=== PATIENT | female | born 1945 | race African-American/Black ===

== ENCOUNTER 2023-07-20 01:36 | Day surgery (SDC) | payer MEDICARE, SELFPAY ==
--- NOTE | 2023-07-14 13:54 | PC.NURSE ---
Report to the Outpatient Waiting Room, entrance under the green pavilion located off [facility], at time _1200 on date __07/20/23 . Planned Procedure Time: ___1400 . Time changes happen often and if your time is changed the preop area will call you the afternoon before. - You and your visitor will be asked to self-screen and do not enter if you have any COVID symptoms. - A mask is optional within the hospital at this time. Patients may have clear liquids (water, carbonated beverages, clear teas, apple juice) until 3 hours prior to surgery with a maximum of 20 ounces. - No food from midnight until time of surgery - Infants may have breast milk until 4 hours before surgery, infant formula 6 hours prior to surgery. - Children will be allowed to drink immediately following surgery. If applicable, please bring a bottle or sippy cup to assist with drinking. Juice, water, soda, and popsicles are readily available. For infants on formula, please bring formula the day of surgery. Pacifiers are allowed. Take the following medications with a SIP of water the morning of surgery: _NIFEDIPINE,LEVOTHYROXINE DO NOT STOP ANY OF YOUR OTHER PRESCRIPTION MEDICATIONS PRIOR TO SURGERY ?EXCEPT THE FOLLOWING Medications to discontinue per physician __CELECOXIB PER DR CEBALLOS ALL VITAMINS AND SUPPLEMENTS 3 DAYS PRE OP.LAST DOSE 07/16/23 Please no make-up, nail tamazight, hairspray, perfume, deodorant, or body powder the day of surgery. No jewelry (including any body piercings) or valuables the day of surgery, leave them at home. Please take a shower or bath the night before, or the morning of, surgery with an antibacterial soap. Wear comfortable, loose fitting clothing. Children are encouraged to wear pajamas. - Jewelry must be removed prior to entering the operating room. Rings and piercings that are not removed may be cut off. - The hospital will not accept responsibility for valuables. - Please leave all valuables, including medications, at home the day of surgery. If you are going home after surgery, a licensed shuttle truck driver must drive you home. - NO public transportation without another adult if you receive anesthesia. - We recommend that an adult stay with you for 24 hours following discharge. - We also recommend that you do not drive, make important decision, drink alcoholic beverages, or take any drugs that were not prescribed by your health care provider for at least 24 hours after your discharge time. For Pediatric surgeries, we recommend two adults accompany the child home. Follow any additional instructions given to you from your surgeon. If you or anyone in your household have experienced Covid symptoms in the past week, please notify your surgeon or the nurse liaison at the phone number below for possible testing. Telephone instructions given to ____PT and asked if any additional questions and then verbalized understanding. Patient advised to call surgeon office or pre surgery nurse liaison [phone] if any additional questions.
[2023-07-14 14:00] VITALS: BMI 29.7
--- NOTE | 2023-07-20 07:05 | WPDHPUPDATE1 ---
History and Physical Update Update Date/Time: 07/20/23 07:05 History and Physical has been reviewed, including an updated exam of the patient. There are NO changes in the patient's condition. Risks, benefits, and alternatives have been discussed and questions answered. Patient agrees to proceed with procedure.
[2023-07-20] MEDS: LACTATED RINGERS 1,000 ML 30 ML IV CONT (09:30)
--- NOTE | 2023-07-20 09:46 | WPDANESEPPF ---
Anes - Initial Pre Proc Eval Procedure: Operation Date: 07/20/23 10:30 Proposed Procedures p Excision of Two Keloids Left Axilla, Anterior and Posterior - Lev Navarro MD Date/Time: 07/20/23 09:46 Surgeon: Lev Navarro MD Pre Op Diagnosis: Keloids x 2 Left Axilla, Anterior and Posterior Patient Data Age: 78 Gender: F Height: 1.65 m Weight: 81.2 kg Allergies Allergy/AdvReac Type Severity Reaction Status Date / Time No Known Allergies Allergy Verified 07/14/23 13:44 Home Medications Medication Instructions Recorded Confirmed Type ascorbic acid (vitamin C) 1,000 mg 1 g PO DAILY 07/14/23 07/14/23 History capsule celecoxib 100 mg capsule (Celebrex) 100 mg PO PRN PRN Pain 07/14/23 07/14/23 History cyanocobalamin (vitamin B-12) 1,000 mcg PO DAILY 07/14/23 07/14/23 History 1,000 mcg capsule levothyroxine 25 mcg tablet 25 mcg PO DAILY 07/14/23 07/14/23 History nifedipine 30 mg tablet,extended 30 mg PO DAILY 07/14/23 07/14/23 History release Patient hx anesthesia problems: none Family hx anesthesia problems: none Results Review: All pre-operative results and documents have been reviewed as part of the pre-operative evaluation. [facility] Social History Social History Smoking status: Never smoker Living arrangements: with family Spiritual care concerns: No Anes - Eval Final PreProcedure Day of Procedure 07/20/23 09:46 Patient weight: normal Heart: regular rate and rhythm Lungs: clear to auscultation Airway: Mallampati scale class II Neurological: alert and oriented Last oral intake: >/= 8 hours ASA classification: II Emergent: no Anesthetic plan: proceed Anesthesia type and monitoring: general GIVS and standard monitoring Results Review: All pre-operative results and documents have been reviewed as part of the pre-operative evaluation. Informed Consent: The patient's anesthetic plan and its attendant risks and benefits were discussed with the patient/family/POA. Questions were solicited and answers provided to the satisfaction of the patient/family/POA.
[2023-07-20 10:06] VITALS: BP 187/74; PULSE 105; RESP 18; TEMP 36.6; O2SAT 97
[2023-07-20] MEDS: LIDO 1%/EPINEPHRINE 1:100,000 20 ML VIAL 5 ML INFILTRATE (10:30)
[2023-07-20] MEDS: BACITRACIN OINTMENT 15 GM TUBE 1 APPLIC TOPICAL (10:51)
[2023-07-20 11:04] VITALS: BP 96/51; PULSE 75; RESP 16; O2SAT 98
--- NOTE | 2023-07-20 11:19 | P.OP_ITS ---
Procedure Note - Detailed Date of Procedure 07/20/23 Pre-op Diagnosis Keloids x 2 Left Axilla, Anterior and Posterior Post-op Diagnosis Same Procedure Performed Total 6 cm excision of 2 keloids of the left axilla with total intermediate r epair 11 cm Surgeon Lev Navarro MD Anesthesia MAC Description of Procedure The patient's keloids in the left axilla were marked in the holding area. They included 1 smaller in the anterior aspect, 1 larger r in the anterior aspect. She was taken to the operating room where she was placed supine on the operating table. The arm was extended on arm board. She was given IV sedation and the extremity was prepped and draped in usual fashion. The sites were carefully examined for those to be excised as she wished. These were then infiltrated with 1% lidocaine with epinephrine around the base. The excisions were carried out close to the keloid margins. Neither specimen was sent to pathology. There was no undermining required. The wounds were closed with intradermal 3-0 Vicryl suture in the anterior posterior axis. The skin was then closed with a running 5 0 nylon in each case. The excisions were 1.5 cm on the anterior and 4 cm on the posterior sites. The repairs were 4 cm on the anterior and 7 cm on the posterior site Estimated Blood Loss 3 Tourniquet Time 0 Packing No Pathology None sent Complications No immediate complications Condition Stable Disposition Same day
[2023-07-20 11:30] VITALS: BP 131/65; PULSE 83; RESP 16; O2SAT 95
[2023-07-20 12:00] VITALS: BP 147/81; PULSE 69; RESP 16
== END 2023-07-20 12:20 | disposition home or self-care (01) ==
PROVIDERS: PCP Family Medicine; Visit Provider Plastic Surgery
PROC: (CPT 11402; principal; 2023-07-20 10:30)
DX: L91.0 Hypertrophic scar (principal)
CPT/HCPCS: 11402; 11404; 12034; A9270; J1170; J2704; J3010; J7120